=== PATIENT | male | born 1960 | race Caucasian/White ===

== ENCOUNTER → 2018-07-17 | Outpatient (CLI) | payer BC ==
--- NOTE | 2018-07-17 11:54 | RAD ---
MR#: [id number] Date of Study: 07/17/2018 Ordering Physician: SILVIA MONROY, Referring Physician: EUGENIA ABRAHAM Tech: RT Trish (R) (N) APPROVED REPORT Test Type: Exercise Stress Nurse/Tech: Emma Fine R.N. Test Indications: coronary atherosclerosis, cardiac scoring Cardiac History: Family history, Hypertension, High cholesterol Medications: See Electronic Medical Record Medical History: See Electronic Medical Record Resting ECG: NSR Resting Heart Rate: 69 bpm Resting Blood Pressure: 145/90mmHg Pretest Chest Pain: No chest pain Nurse/Tech Notes S1S2, lungs sound clear Consent: The procedure was explained to the patient in lay terms. Informed consent was witnessed. Silas eout was entered into [facility] History and Stress Test performed by Emma Fine R.N. Stress Symptoms No chest pain or symptoms. POST EXERCISE Reason for Termination: Reached target heart rate Target HR: 136 Max HR: 174 bpm % of Maximum Predicted HR: 4 bpm Exercise duration: 10 min min:sec, Stage Max Blood Pressure: 160/80mmHg Blood Pressure response to exercise: Normal blood pressure response during stress. Chest Pain: No. Arrhythmia: No. ST Change: Yes. slight ST elevation in AVL INTERPRETATION Stress EKG Conclusion: Non-specific upsloping [address] segment depression in the anterolateral leads. Imaging Protocol IMAGE PROTOCOL: Rest Tc-99m/stress Tc-99m 1 day Rest: Stress: Viability: Radiopharm.Tc99m [id number] Sestamibi Dose11.5mCi 32mCi Duration 13min. 13min. Img Date 07/17/2018 07/17/2018 Inj-Img Tdtl43xhg. 60min. Rest Admin Site:IV - Right AntecubitalAdministrator:RT Trish (R)(N) Stress Admin Site: IV - Right AntecubitalAdministrator: EUGENIA OsborneTCGregory, ARRT (R)(N) STRESS DATA End Diast. Vol.86.0mlLVEDV index BSA41.0ml End Syst. Vol.29.0mlLVESV index BSA14.0ml Myocardial Gkrv110.0gEject. Bqtlznik48.0% Stress Scores Regional WT1.00Summed WT11.00 Regional WM0.00Summed WM3.00 The rest and stress images show normal perfusion, normal contraction and thickening. LV Perf. Quant 17 Seg. SSS0.00 17 Seg. SRS0.00 17 Seg. SDS0.00 Stress Defect Extent (% LAD)0.00Rest Defect Extent (% LAD)0.00Rev. Defect Extent (% LAD)0.00 Stress Defect Extent (% LCX) 0.00Rest Defect Extent (% LCX)0.00Rev. Defect Extent (% LCX)0.00 Stress Defect Extent (% RCA)0.00Rest Defect Extent (% RCA)0.00Rev. Defect Extent (% RCA)0.00 Stress Defect Extent (% WILLI)0.00Rest Defect Extent (% WILLI)0.00Rev. Defect Extent (% WILLI)0.00 Other Information Quality:Good Risk Assessment: Low Risk Conclusion 1. No evidence of significant EKG changes with stress testing. Excellent functional capacity. 2. Normal perfusion at stress/rest. 3. Low risk study. 4. EF > 60%. Signed by : Silvia Monroy, Electronically Approved : 07/17/2018 11:53:05
== END | disposition home or self-care (01) ==
LOC: NM 07:26
PROVIDERS: ATTEND Internal Medicine Cardiovascular Disease
DX: I25.10 Atherosclerotic heart disease of native coronary artery without angina pectoris (principal); I10 Essential (primary) hypertension; E78.00 Pure hypercholesterolemia, unspecified; Z82.49 Family history of ischemic heart disease and other diseases of the circulatory system
CPT/HCPCS: 78452; 93017; 96374; 96376; A9500